=== PATIENT | female | born 1940 | race Caucasian/White ===

== ENCOUNTER 2017-02-27 15:30 | Outpatient (RCR) | payer MEDICARE, MEDICAID ==
[~2017-02-27 15:30] MED LIST: AMBIEN 5MG TABLE5 MG PO; AVANDARYL; BUFFERED ASPIR325 M1 PO; CALCIUM CARBON500 M1 PO; CALTRATE 600 +1 TAB PO; CRESTOR 10MG10 MG PO; CRESTOR10 MG PO; ENALAPRIL; ESCITALOPRAM PO; GABAPENTIN300 M1 PO; GABAPENTIN400 M1 PO; LANTUS100 U/ML SQ; LISINOPRIL/HCTZ1 TAB PO; MULTIVITAMIN PO; NEURONTIN400 MG/CAP PO; NORCO 325 MG-51 TAB PO; NOVLOG SQ; NOVOLOG 100U100 U/ML SQ; OXYCONTIN10 MG PO; ULTRAM 50MG TAB50 MG PO; VITAMIN E200 I1 PO
== END 2017-02-28 ==
LOC: WSPT
DX: M51.36 Other intervertebral disc degeneration, lumbar region (principal); M17.12 Unilateral primary osteoarthritis, left knee
CPT/HCPCS: G8978-GP; G8979-GP

== ENCOUNTER 2018-04-02 20:32 | Emergency (ER) | payer MEDICARE, MEDICAID ==
[~2018-04-02] VITALS: Ht 180.3 cm; Wt 93.2 kg
[2018-04-02 20:36] VITALS: TEMP 98.6
[2018-04-02 21:35] VITALS: BP 171/78; PULSE 59
== END 2018-04-02 21:35 | disposition home or self-care (01) ==
LOC: COL.ER 20:32
DX: M25.562 Pain in left knee (principal)

== ENCOUNTER → 2020-05-25 | Outpatient (CLI) | payer MEDICARE, MEDICAID | LOC: ZCOL.LAB 17:20 | DX: R73.9 Hyperglycemia, unspecified (principal); R73.09 Other abnormal glucose ==

== ENCOUNTER 2020-11-18 18:10 | Emergency (ER) | payer MEDICARE, MEDICAID ==
[~2020-11-18] VITALS: Ht 180.3 cm; Wt 79.5 kg
[2020-11-18 18:22] VITALS: BP 103/63; TEMP 97
[2020-11-18 19:51] LABS: ALANINE AMINOTRANSFERASE 15 U/L (4-34); ALBUMIN 3.9 gm/dL (3.5-5.0); ALKALINE PHOSPHATASE 58 U/L (50-136); ANION GAP 6 mmol/L (7-16); AST,SGOT 29 U/L (15-37); BILIRUBIN,TOTAL 1.3 mg/dL (0.0-1.0); BLOOD UREA NITROGEN 13 mg/dL (7-17); CALCIUM 9.6 mg/dL (8.4-10.2); CARBON DIOXIDE 24 mmol/L (22-30); CHLORIDE 106 mmol/L (98-107); CREATININE, serum 0.63 (0.52-1.25); GLUCOSE 87 mg/dL (74-106); POTASSIUM 3.4 mmol/L (3.4-5.0); SODIUM 136 mmol/L (137-145); TOTAL PROTEIN 6.9 gm/dL (6.4-8.2)
[2020-11-18 20:08] LABS: ACETONE,SERUM NEGATIVE
[2020-11-18 20:30] LABS: BASO # 0.1 (0.0-0.2); BASO % 0.6 % (0.0-2.0); EOS # 0.1 (0.0-0.7); EOS % 0.9 % (0-4.0); GRAN # 8.5 (1.4-6.5); GRAN % 68.7 % (42.2-75.2); HEMATOCRIT 44.6 % (37.0-47.0); HEMOGLOBIN 14.6 g/dl (12.5-16.0); LYMPH # 2.7 (1.2-3.4); LYMPH % 21.9 % (20.0-51.0); MEAN CELL VOLUME 92 fl (80.0-100.0); MEAN CORPUSCULAR HEMOGLOBIN 30 pg (27.0-31.0); MEAN CORPUSCULAR HGB CONC 33 g/dl (33.0-37.0); MEAN PLATELET VOLUME 10.1 fl (7.4-10.4); MONO # 0.9 (0.1-0.6); MONO % 7.2 % (1.7-9.3); PLATELET COUNT 339 K/mm3 (130-400); RED BLOOD COUNT 4.83 M/mm3 (4.10-5.30); REDCELL DISTRIBUTION WIDTH-CV 14.1 % (11.5-14.5)
[2020-11-18 20:32] LABS: ARTERIAL BLD GAS O2 SATURATION 97.8 % (92-100); ARTERIAL BLD GAS TCO2 CT 22.6; ARTERIAL BLOOD GAS BASE EXCESS -0.3 (-2-2); ARTERIAL BLOOD GAS HCO3 21.7 meq/L (22-26); ARTERIAL BLOOD GAS PCO2 28.8 mmHg (35-45); ARTERIAL BLOOD GAS PO2 89.3 mmHg (80-100)
[2020-11-18 21:09] LABS: COLLECTION METHOD CLEAN CATCH
[2020-11-18 21:20] LABS: BUDDING YEAST Present /hpf; MUCOUS Present /lpf; PH 5 (5-8); SQUAMOUS EPITHELIAL 0-2 /hpf; URINE APPEARANCE Cloudy; URINE BACTERIA None Seen /hpf; URINE BILIRUBIN Negative (NEGATIVE); URINE BLOOD Negative (NEGATIVE); URINE COLOR Yellow; URINE GLUCOSE 3+ (NEGATIVE); URINE KETONE Trace (NEGATIVE); URINE LEUKOCYTE ESTERASE Trace (NEGATIVE); URINE NITRATE Negative (NEGATIVE); URINE PROTEIN(semi-quant) 1+ (NEGATIVE); URINE UROBILINOGEN Negative (NEGATIVE)
[2020-11-18] MEDS ORDERED: MACROBID 1100 MG/CAP PO (21:38)
[2020-11-18 22:23] VITALS: PULSE 86
== END 2020-11-18 22:23 | disposition home or self-care (01) ==
LOC: COL.ER 18:10
PROVIDERS: Emergency Medicine; Family Medicine; Physician Assistant
DX: E11.65 Type 2 diabetes mellitus with hyperglycemia (principal); N39.0 Urinary tract infection, site not specified; Z79.4 Long term (current) use of insulin

== ENCOUNTER 2021-06-02 22:18 | Emergency (ER) | payer MEDICARE, MEDICAID ==
[~2021-06-02] VITALS: Ht 180.3 cm; Wt 81.8 kg
[~2021-06-02 22:18] MED LIST changes: +MACROBID 1100 MG/CAP PO
[2021-06-02 22:23] VITALS: TEMP 97.2
[2021-06-02 23:17] LABS: BASO % 0.4 % (0.0-2.0); EOS % 0.2 % (0.0-4.0); GRAN # 8.7 K/mm3 (1.4-6.5); HEMATOCRIT 37.7 % (37.0-47.0); HEMOGLOBIN 12.5 g/dl (12.5-16.0); LYMPH # 0.8 K/mm3 (1.2-3.4); LYMPH % 7.6 % (20.0-51.0); MEAN CELL VOLUME 92 fl (80.0-100.0); MEAN CORPUSCULAR HEMOGLOBIN 30 pg (27-31); MEAN CORPUSCULAR HGB CONC 33 g/dl (33.0-37.0); MEAN PLATELET VOLUME 11.9 fl (7.4-10.4); MONO # 0.7 K/mm3 (0.1-0.6); MONO % 6.7 % (1.7-9.3); PLATELET COUNT 133 K/mm3 (130-400); RED BLOOD COUNT 4.11 M/mm3 (4.10-5.30)
[2021-06-02 23:45] LABS: BILIRUBIN,TOTAL 2.1 mg/dL (0.2-1.2); CALCIUM 8.8 mg/dL (8.4-10.2); CREATININE, serum 0.87 mg/dL (0.57-1.11); POTASSIUM 3.8 mmol/L (3.5-4.5); TOTAL PROTEIN 6.6 gm/dL (6.2-8.1)
[2021-06-03 01:32] LABS: ARTERIAL BLD GAS O2 SATURATION 97.4 % (92-100); ARTERIAL BLD GAS TCO2 CT 23.8; ARTERIAL BLOOD GAS BASE EXCESS -1.2 (-2-2); ARTERIAL BLOOD GAS HCO3 22.7 meq/L (22-26); ARTERIAL BLOOD GAS PCO2 35.6 mmHg (35-45); ARTERIAL BLOOD GAS PO2 95.9 mmHg (80-100); ARTERIAL BLOOD GAS pH 7.42 (7.35-7.45)
[2021-06-03 03:36] VITALS: BP 132/80; PULSE 76
[2021-06-04] MEDS ORDERED: NEURONTIN400 MG/CAP PO (22:02)
[2021-06-04] MEDS ORDERED: CRESTOR 10MG10 MG PO (22:03)
[2021-06-04] MEDS ORDERED: PRINIVIL2.5 MG PO (22:03)
[2021-06-04] MEDS ORDERED: INDERAL 10MG10 MG PO (22:03)
[2021-06-04] MEDS ORDERED: SINGULAIR 110 MG/TAB PO (22:04)
[2021-06-05] MEDS ORDERED: LANTUS SOLOS100 U/ML SQ (10:26)
[2021-06-05] MEDS ORDERED: HUMALOG 75/2100 U/ML SQ (10:27)
[2021-06-05] MEDS ORDERED: LEXAPRO20 MG PO (10:28)
[2021-06-05] MEDS ORDERED: PRINIVIL2.5 MG PO (10:29)
[2021-06-07] MEDS ORDERED: NOVOLOG 100U100 U/M1 SQ (09:11)
[2021-06-07] MEDS ORDERED: LEVEMIR100 U/ML SQ (09:11)
[2021-06-07] MEDS ORDERED: NEURONTIN100 MG/CAP PO (09:12)
[2021-06-07] MEDS ORDERED: TYLENOL 325MG325 MG PO (09:13)
[2021-06-07] MEDS ORDERED: NORCO 325 MG-51 TAB PO (09:14)
== END 2021-06-03 03:36 | disposition home or self-care (01) ==
LOC: COL.ER 22:18
PROVIDERS: Personal Emergency Response Attendant
DX: E11.65 Type 2 diabetes mellitus with hyperglycemia (principal); Z87.891 Personal history of nicotine dependence; Z79.4 Long term (current) use of insulin; W06.XXXA Fall from bed, initial encounter
CPT/HCPCS: J1815; J7040

== ENCOUNTER 2022-04-18 12:54 | Inpatient (IN) | payer MEDICARE, MEDICAID ==
[~2022-04-18] VITALS: Ht 180.3 cm; Wt 85.0 kg
[~2022-04-18 12:54] MED LIST changes: +HUMALOG 75/2100 U/ML SQ; +INDERAL 10MG10 MG PO; +LANTUS SOLOS100 U/ML SQ; +LEVEMIR100 U/ML SQ; +LEXAPRO20 MG PO; +NEURONTIN100 MG/CAP PO; +NOVOLOG 100U100 U/M1 SQ; +PRINIVIL2.5 MG PO; +SINGULAIR 110 MG/TAB PO; +TYLENOL 325MG325 MG PO
[2022-04-18 14:38] LABS: BASO # 0.1 K/mm3 (0.0-0.2); BASO % 0.6 % (0.0-2.0); EOS # 0.1 K/mm3 (0.0-0.7); EOS % 1.4 % (0.0-4.0); GRAN # 6.7 K/mm3 (1.4-6.5); GRAN % 79.4 % (42.2-75.2); HEMOGLOBIN 11.1 g/dl (12.5-16.0); LYMPH # 0.8 K/mm3 (1.2-3.4); LYMPH % 8.9 % (20.0-51.0); MEAN CELL VOLUME 90 fl (80.0-100.0); MEAN CORPUSCULAR HEMOGLOBIN 30 pg (27-31); MEAN CORPUSCULAR HGB CONC 34 g/dl (33.0-37.0); MEAN PLATELET VOLUME 9.2 fl (7.4-10.4); MONO # 0.8 K/mm3 (0.1-0.6); MONO % 9.1 % (1.7-9.3); PLATELET COUNT 212 K/mm3 (130-400); RED BLOOD COUNT 3.66 M/mm3 (4.10-5.30); REDCELL DISTRIBUTION WIDTH-CV 14.6 % (11.5-14.5)
[2022-04-18 14:40] LABS: HEMATOCRIT 32.9 % (37.0-47.0)
[2022-04-18 15:00] LABS: ALBUMIN 3.3 gm/dL (3.4-4.8); CALCIUM 8.4 mg/dL (8.4-10.2); CREATININE, serum 0.79 mg/dL (0.57-1.11)
[2022-04-18 15:11] LABS: BILIRUBIN,TOTAL 0.6 mg/dL (0.2-1.2)
[2022-04-18] MEDS ORDERED: BENADRYL25 M2 PO (16:02)
[2022-04-18] MEDS ORDERED: ZYRTEC 10MG10 MG PO (16:03)
[2022-04-18] MEDS ORDERED: LIQUIFILM TEARS15 ML OU (16:03)
[2022-04-18] MEDS ORDERED: LANTUS100 U/ML SQ (16:04)
[2022-04-18] MEDS ORDERED: IMODIUM 2MG CAPS2 MG PO (16:22)
[2022-04-18] MEDS ORDERED: CLARITIN 1010 MG/TAB PO (16:22)
[2022-04-18] MEDS ORDERED: TOPROL XL 25MG25 MG PO (16:23)
[2022-04-18] MEDS ORDERED: MAALOX ADVANCED1 CTB PO (16:23)
[2022-04-18] MEDS ORDERED: MILK OF MA400 MG/52 (16:24)
[2022-04-18] MEDS ORDERED: ZYPREXA ZYDIS5 MG PO ×2 (16:24→16:25)
[2022-04-18] MEDS ORDERED: MIRALAX PA17 GM/Dose PO (16:24)
[2022-04-18] MEDS ORDERED: ZOFRAN ODT4 MG PO (16:25)
[2022-04-18] MEDS ORDERED: PRILOSEC 20MG20 MG PO (16:25)
[2022-04-18] MEDS ORDERED: EXELON13.3TDM (16:27)
[2022-04-18] MEDS ORDERED: TRILEPTAL600 MG PO (16:27)
[2022-04-18] MEDS ORDERED: SENNA-LAX8.6 MG PO (16:28)
[2022-04-18] MEDS ORDERED: ZOLOFT 100MG100 MG PO (16:28)
[2022-04-18] MEDS ORDERED: DESYREL 100MG100 MG PO (16:29)
[2022-04-18 17:42] VITALS: BP 158/60; PULSE 70; TEMP 98
[2022-04-18] MEDS ORDERED: NEURONTIN100 MG/CAP PO (17:55)
[2022-04-18] MEDS ORDERED: NOVOLOG 100U100 U/M1 SQ (17:58)
--- NOTE | 2022-04-18 19:32 | NUR ---
Patient admitted to room 344 from ER. Med rec completed per shelter paperwork, patient unaware of medications that she takes. Ivf & antibioitcs per orderes to [facility]. Dinner of soup ordered per patient request. Patient admitted from ER with Dom in place, celine provided. Report to tish.
[2022-04-18 20:18] VITALS: BP 158/49; PULSE 68; TEMP 97.3
[2022-04-19] VITALS (7 sets, daily range): BP systolic 114–161; BP diastolic 42–65; PULSE 64–83; TEMP 97.9–99.8
[2022-04-19 06:38] LABS: BASO # 0.1 K/mm3 (0.0-0.2); EOS # 0.2 K/mm3 (0.0-0.7); EOS % 3.8 % (0.0-4.0); GRAN # 4.2 K/mm3 (1.4-6.5); GRAN % 66.8 % (42.2-75.2); HEMATOCRIT 28.8 % (37.0-47.0); LYMPH % 16.3 % (20.0-51.0); MEAN CELL VOLUME 88 fl (80.0-100.0); MEAN CORPUSCULAR HEMOGLOBIN 30 pg (27-31); MEAN CORPUSCULAR HGB CONC 35 g/dl (33.0-37.0); MEAN PLATELET VOLUME 9.9 fl (7.4-10.4); MONO # 0.7 K/mm3 (0.1-0.6); MONO % 11.6 % (1.7-9.3); PLATELET COUNT 223 K/mm3 (130-400); RED BLOOD COUNT 3.29 M/mm3 (4.10-5.30); REDCELL DISTRIBUTION WIDTH-CV 14.6 % (11.5-14.5)
[2022-04-19 06:58] LABS: ALBUMIN 2.9 gm/dL (3.4-4.8); CALCIUM 7.9 mg/dL (8.4-10.2); CREATININE, serum 0.69 mg/dL (0.57-1.11); MAGNESIUM 1.7 mg/dL (1.6-2.6); PHOSPHOROUS 3.3 mg/dL (2.3-4.7); POTASSIUM 4.4 mmol/L (3.5-4.5)
--- NOTE | 2022-04-19 11:12 | NUR ---
TAMICA contacted Sharon at [facility] and confirmed that the patient is a long-term care resident with them. The patient's PCP is Dr. Bear Hyde and her DPOA-HC is in EMR. It designates her daughter, Briana Toney. TAMICA contacted the patient's daughter/DPOA-HC, Briana Toney (ph#[phone]), to discuss discharge plan. Briana lives in [facility]. Briana confirms that the plan is for the patient to return back to [facility] upon discharge. TAMICA faxed updates to [facility]. *Discharge plan: [facility]*
--- NOTE | 2022-04-19 14:20 | NUR ---
Lolly: [facility] Situation: rfid engineer went by room on rounds Background: pt was asking for an iv change rfid engineer passed it on to nurse Assessment: no other needs pt appreciated the visit Recommendation: rfid engineer will follow up as needed
--- NOTE | 2022-04-19 19:30 | NUR ---
RECEIVED CHANGE OF SHIFT REPORT FROM DAY SHIFT RN.
[2022-04-20] VITALS (13 sets, daily range): BP systolic 130–169; BP diastolic 41–84; PULSE 76–89; TEMP 97.6–99
[2022-04-20 06:30] LABS: BASO % 0.5 % (0.0-2.0); EOS # 0.3 K/mm3 (0.0-0.7); EOS % 4.6 % (0.0-4.0); GRAN # 4.1 K/mm3 (1.4-6.5); GRAN % 73.4 % (42.2-75.2); HEMOGLOBIN 10.2 g/dl (12.5-16.0); LYMPH # 0.5 K/mm3 (1.2-3.4); LYMPH % 8.2 % (20.0-51.0); MEAN CELL VOLUME 92 fl (80.0-100.0); MEAN CORPUSCULAR HEMOGLOBIN 31 pg (27-31); MEAN CORPUSCULAR HGB CONC 33 g/dl (33.0-37.0); MONO # 0.7 K/mm3 (0.1-0.6); MONO % 12.8 % (1.7-9.3); PLATELET COUNT 194 K/mm3 (130-400); RED BLOOD COUNT 3.33 M/mm3 (4.10-5.30); REDCELL DISTRIBUTION WIDTH-CV 14.5 % (11.5-14.5)
[2022-04-20 06:38] LABS: HEMATOCRIT 30.5 % (37.0-47.0)
--- NOTE | 2022-04-20 06:47 | NUR ---
CHANGE OF SHIFT REPORT GIVEN TO DAY SHIFT RNJUANJOSE. PATIENT CONTINUES TO BE CONFUSED AND ANXIOUS WHEN AWAKE, DENIES ANY COMPLAINTS OF PAIN THIS SHIFT.
[2022-04-20 06:55] LABS: ALBUMIN 2.8 gm/dL (3.4-4.8); CALCIUM 8.3 mg/dL (8.4-10.2); CREATININE, serum 0.74 mg/dL (0.57-1.11); MAGNESIUM 1.9 mg/dL (1.6-2.6); PHOSPHOROUS 3.1 mg/dL (2.3-4.7); POTASSIUM 3.9 mmol/L (3.5-4.5)
--- NOTE | 2022-04-20 08:00 | NUR ---
Assessment complete. Patient is alert but not oriented. Very confused this AM and very tearful. Tried to calm patient and explain what was going on but does not comprehend. VS have been stable. NS@75ml/hr to right AC infusing without difficulty. Purewick in place with clear yellow output. Noted to have redness to coccyx. Plan of care discussed several times for surgery this AM. Call light in reach/bed alarm on. WIll monitor.
--- NOTE | 2022-04-20 08:28 | NUR ---
Report called to Gina RN-OR staff.
--- NOTE | 2022-04-20 08:35 | NUR ---
To OR at this time via bed.
--- NOTE | 2022-04-20 10:21 | NUR ---
Spoke with [facility] nursing staff-requested updated med list be faxed to update current med rec. States will fax.
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
--- NOTE | 2022-04-20 11:25 | NUR ---
Arrived to room 343 via bed from PACU.
[2022-04-20] MEDS ORDERED: MAALOX ADVANCE148 ML PO (12:36)
--- NOTE | 2022-04-20 13:22 | NUR ---
The patient had surgery today. TAMICA contacted and faxed updates to Sharon at [facility]. Sharon states that they cannot take over the weekend. She states that she will get back to this SW about a transport time on Saturday.
--- NOTE | 2022-04-20 16:20 | NUR ---
Pharmacy notified of need for Exilon patch.
--- NOTE | 2022-04-20 18:29 | NUR ---
Patient has had an uneventful night. Denied pain/nausea/shortness of breath. VS remain stable. Lap sites x 3-bandaids CDI. Has only tolerated a little bit of clear liquids this far. States she just inst hungry. Denies current needs. Call light in reach. WIll monitor.
--- NOTE | 2022-04-20 21:48 | NUR ---
PT IN BED, IS CONFUSED TO PLACE AND TIME. TAKES HS MEDS WITHOUT PROBLEM. REPORTS PAIN TO ABD INTO SHOULDER, MEDICATED WITH NORCO 1 TAB PO AT THIS TIME. APRESOLINE GIVEN FOR ELEVATED SBP. HAS IVF TO RT WRIST, INFUSING WITHOUT PROBLEM. REPOSITIONED TO LEFT SIDE, PUREWIK PLACED. ABD WITH LAP SITES X3 D/I.
[2022-04-21 03:19] VITALS: BP 141/54; PULSE 85; TEMP 98.1
[2022-04-21 06:41] LABS: BASO % 0.5 % (0.0-2.0); EOS # 0.6 K/mm3 (0.0-0.7); EOS % 9.5 % (0.0-4.0); GRAN # 4.7 K/mm3 (1.4-6.5); GRAN % 70.6 % (42.2-75.2); LYMPH # 0.5 K/mm3 (1.2-3.4); LYMPH % 8.2 % (20.0-51.0); MEAN CELL VOLUME 94 fl (80.0-100.0); MEAN CORPUSCULAR HGB CONC 33 g/dl (33.0-37.0); MEAN PLATELET VOLUME 8.8 fl (7.4-10.4); MONO # 0.7 K/mm3 (0.1-0.6); MONO % 10.9 % (1.7-9.3); PLATELET COUNT 201 K/mm3 (130-400); RED BLOOD COUNT 3.21 M/mm3 (4.10-5.30)
[2022-04-21 06:53] LABS: HEMATOCRIT 30.2 % (37.0-47.0); HEMOGLOBIN 9.8 g/dl (12.5-16.0); MEAN CORPUSCULAR HEMOGLOBIN 31 pg (27-31)
[2022-04-21 07:01] LABS: ALBUMIN 2.6 gm/dL (3.4-4.8); CALCIUM 8.1 mg/dL (8.4-10.2); CREATININE, serum 0.72 mg/dL (0.57-1.11); MAGNESIUM 1.8 mg/dL (1.6-2.6); PHOSPHOROUS 3.1 mg/dL (2.3-4.7); POTASSIUM 3.8 mmol/L (3.5-4.5)
--- NOTE | 2022-04-21 07:30 | NUR ---
Assessment complete. Resting in bed eyes closed. Very drowsy this morning. Wakes to name but is not oriented. States she is very tired this morning and wants to wait to eat breakfast. Denies pain/nausea/shortness of breath. Lap sites x3-bandaids. Tele reporting SR. NS@75ml/hr to right wrist-infusing without difficulty. Purewick in place with clear yellow urine. SCDs on bilat. Plan of care discussed for this shift to include meds/calling for questions concerns. Call light in reach/bed alarm on. Will monitor.
[2022-04-21 08:00] VITALS: BP 145/53; PULSE 82; TEMP 99.1
[2022-04-21 12:00] VITALS: BP 134/44; PULSE 82; TEMP 98.5
--- NOTE | 2022-04-21 12:54 | NUR ---
Loom Starter offered prayer and support with patient.
[2022-04-21 16:00] VITALS: BP 110/35; PULSE 73; TEMP 98.4
[2022-04-21 19:52] VITALS: BP 166/58; PULSE 80; TEMP 99.3
--- NOTE | 2022-04-21 21:09 | NUR ---
PT IN BED. TAKES HS MEDS WITHOUT PROBLEM. PUREWICK CATH IN PLACE, URINE DK YELLOW. IN TO RT WRIST, LAP SITES X3 TO ABD D/I. REPOSITIONED TO RT SIDE. MEDICATED WITH NORCO 1 TAB PO FOR ABD PAIN. BED ALARM ON FOR PT SAFETY.
[2022-04-21 23:53] VITALS: BP 124/41; PULSE 76; TEMP 101.2
--- NOTE | 2022-04-22 | NUR ---
PT TEMP 101.2, MEDICATED WITH TYLENOL 650MG PO AT THIS TIME.
--- NOTE | 2022-04-22 01:00 | NUR ---
Patient care, medication administration and nursing documentation occurred during a Daylight Savings Time Change.
[2022-04-22 04:00] VITALS: BP 114/41; PULSE 67; TEMP 98.1
--- NOTE | 2022-04-22 04:42 | NUR ---
PTS TEMP 98.1 ORALLY. IS RESTING WELL.
[2022-04-22 06:43] LABS: BASO % 0.5 % (0.0-2.0); EOS # 0.5 K/mm3 (0.0-0.7); EOS % 5.5 % (0.0-4.0); GRAN # 5.8 K/mm3 (1.4-6.5); GRAN % 71.3 % (42.2-75.2); MEAN CELL VOLUME 92 fl (80.0-100.0); MEAN CORPUSCULAR HGB CONC 33 g/dl (33.0-37.0); MEAN PLATELET VOLUME 9.1 fl (7.4-10.4); MONO # 0.8 K/mm3 (0.1-0.6); MONO % 10.3 % (1.7-9.3); PLATELET COUNT 182 K/mm3 (130-400); RED BLOOD COUNT 2.98 M/mm3 (4.10-5.30); REDCELL DISTRIBUTION WIDTH-CV 14.8 % (11.5-14.5)
[2022-04-22 06:45] LABS: HEMATOCRIT 27.3 % (37.0-47.0); HEMOGLOBIN 9.1 g/dl (12.5-16.0); MEAN CORPUSCULAR HEMOGLOBIN 31 pg (27-31)
[2022-04-22 07:03] LABS: ALBUMIN 2.4 gm/dL (3.4-4.8); CREATININE, serum 0.81 mg/dL (0.57-1.11); MAGNESIUM 1.8 mg/dL (1.6-2.6); PHOSPHOROUS 3.8 mg/dL (2.3-4.7); POTASSIUM 3.8 mmol/L (3.5-4.5)
[2022-04-22 07:51] VITALS: BP 110/55; PULSE 63; TEMP 98.3
--- NOTE | 2022-04-22 08:00 | NUR ---
Assessment complete. Alert but not oriented. Very drowsy this AM. States she is not hungry for breakfast. Lap sites x3 to abdomen CDI. Denies pain/nausea/shortness of breath. VS remain stable. Plan of care discussed for this shift to include meds/pain control/repositioning/calling for questions/concerns. Verbalizes understanding. call light in reach. Will monitor.
[2022-04-22 11:44] VITALS: BP 126/66; PULSE 101; TEMP 97
--- NOTE | 2022-04-22 15:52 | NUR ---
Dr Howell notified of increase in heart rate over the shift as well as arrhythmia reported by TELE. New orders for EKG. Notified RT of EKG need.
[2022-04-22 16:00] VITALS: BP 103/52; PULSE 85; TEMP 98.1
--- NOTE | 2022-04-22 16:44 | NUR ---
Dr Isaac notified of consult for new onset a fib. New orders received and initiated.
[2022-04-22 17:11] LABS: HEMOGLOBIN 10.3 g/dl (12.5-16.0); MEAN CELL VOLUME 91 fl (80.0-100.0); MEAN CORPUSCULAR HEMOGLOBIN 30 pg (27-31); MEAN CORPUSCULAR HGB CONC 33 g/dl (33.0-37.0); MEAN PLATELET VOLUME 8.5 fl (7.4-10.4); PLATELET COUNT 210 K/mm3 (130-400); RED BLOOD COUNT 3.44 M/mm3 (4.10-5.30); REDCELL DISTRIBUTION WIDTH-CV 14.8 % (11.5-14.5)
[2022-04-22 17:12] LABS: HEMATOCRIT 31.3 % (37.0-47.0)
--- NOTE | 2022-04-22 17:20 | NUR ---
Heparin drip started at this time.
[2022-04-22 17:22] LABS: INR 1.5 (0.8-3.0); PROTHROMBIN TIME 16.7 SECONDS (9.7-12.8)
[2022-04-22 17:24] LABS: PARTIAL THROMBOPLASTIN TIME 30.3 SECONDS (26.0-37.0)
[2022-04-22 20:45] VITALS: BP 124/48; PULSE 57; TEMP 98.1
--- NOTE | 2022-04-22 21:04 | NUR ---
FULLER BRUSH MAN REPORTS PT IN SR/SB AT THIS TIME.
[2022-04-22 21:07] VITALS: BP 152/74; PULSE 99; TEMP 98.2
[2022-04-23] VITALS (8 sets, daily range): BP systolic 93–134; BP diastolic 33–61; PULSE 37–58; TEMP 97.5–98
--- NOTE | 2022-04-23 00:19 | NUR ---
PLACED HEPARIN GTT ON HOLD, XA=1.15. WILL REDRAW PTT/XA IN 2 HOURS AT 0215.
[2022-04-23 02:55] LABS: PARTIAL THROMBOPLASTIN TIME 89.2 SECONDS (26.0-37.0)
--- NOTE | 2022-04-23 03:00 | NUR ---
HEP XA=0.35, RESUMED HEPARIN GTT AT 1200 UNITS/HR. NEXT HEP XA AT 0900.
--- NOTE | 2022-04-23 03:55 | NUR ---
B/P LOW, REPORTED TO NOAM GRANDA. NEW ORDERS FOR BOLUS OF 1000CC OVER 2 HRS THEN CONTINUOUS IVF AT 75CC/HR. CONNECTED IVF AT THIS TIME.
--- NOTE | 2022-04-23 05:00 | NUR ---
PTS B/P 134/56 AFTER BOLUS OF 500CC. NOW HAS IVF AT 75CC/HR TO RT WRIST. NOAM GRANDA NOTIFIED OF B/P READING. PT SHOWS SB ON MONITOR. IS ALERT, CONFUSED TO PLACE AND TIME.
[2022-04-23 07:08] LABS: BASO % 0.4 % (0.0-2.0); EOS # 0.2 K/mm3 (0.0-0.7); EOS % 3.1 % (0.0-4.0); GRAN # 4.8 K/mm3 (1.4-6.5); GRAN % 68.1 % (42.2-75.2); LYMPH # 1.4 K/mm3 (1.2-3.4); LYMPH % 19.7 % (20.0-51.0); MEAN CELL VOLUME 95 fl (80.0-100.0); MEAN CORPUSCULAR HGB CONC 32 g/dl (33.0-37.0); MEAN PLATELET VOLUME 9.9 fl (7.4-10.4); MONO # 0.6 K/mm3 (0.1-0.6); MONO % 8.3 % (1.7-9.3); PLATELET COUNT 178 K/mm3 (130-400); RED BLOOD COUNT 3.28 M/mm3 (4.10-5.30); REDCELL DISTRIBUTION WIDTH-CV 14.8 % (11.5-14.5)
[2022-04-23 07:09] LABS: HEMOGLOBIN 9.9 g/dl (12.5-16.0); MEAN CORPUSCULAR HEMOGLOBIN 30 pg (27-31)
[2022-04-23 07:20] LABS: ALBUMIN 2.6 gm/dL (3.4-4.8); CALCIUM 8.2 mg/dL (8.4-10.2); CREATININE, serum 0.82 mg/dL (0.57-1.11); MAGNESIUM 1.9 mg/dL (1.6-2.6); PHOSPHOROUS 4.4 mg/dL (2.3-4.7); POTASSIUM 3.9 mmol/L (3.5-4.5)
--- NOTE | 2022-04-23 10:04 | NUR ---
The hospitalist notified TAMICA that the patient went into Afib and was started on Sotalol. The patient may be here for another two days. TAMICA notified and faxed updates to Sharon at [facility].
--- NOTE | 2022-04-23 11:05 | NUR ---
Pt doing okay this morning. Heart rate has been bradycardic off and on, hospitalist and cardiology aware. New orders have been written for loop recorder and new medication. Called and discussed this with daughter, Briana. Pt being repositioned every 2 hours.
--- NOTE | 2022-04-23 11:15 | NUR ---
labor trainer staff in with pt prepping for loop recorder
--- NOTE | 2022-04-23 13:00 | NUR ---
Pt resting with eyes closed, even non labored breathing. Heart rate low sustaining in the 30s. Discussed with SANDRO Grover with cardiology. Woke pt and pt heart rate up to the 40's/50's. Pt not having complaints of pain at this time. Only requesting oatmeal to eat. Pt continues to be repositioned
--- NOTE | 2022-04-23 17:30 | NUR ---
Pt recently had an episode of asystole. Went straight to room as ICU called. Pt had pin point pupils and was gasping very slowly for air and was unresponsive. Sternal rubbed pt, after approximately 5 seconds, pt started groaning and making small movements. Took about 15 minutes for her to start making some conversation. Pt stated that she felt very dizzy and was nauseous. Speech was very slow. Dr Sahu notified and came to bedside. Dr Sahu did call and update Dr Loza. Order to notify Dr Loza if pulse goes back down in to the 20s. Atropine was ordered and given by ICU nurse that was working the floor. Pt pulse was in the 30s during this time. Pt also has been unable to void this afternoon. Order for davison catheter obtained and davison catheter placed without difficulty with immediate return of tea colored urine.
--- NOTE | 2022-04-23 18:15 | NUR ---
Pt more awake and is making conversation, back to baseline as prior to the asystole episode. Pt pulse now upper 40s/lower 50's. Dinner has been ordered for the pt
--- NOTE | 2022-04-23 19:30 | NUR ---
PT FEEDING SELF DINNER. IV SITE TO RT WRIST WITH HEPARIN GTT AT 12CC/HR INFUSING AND NS AT 75CC/HR INFUSING WITHOUT REDNESS OR SWELLING. KELLEY TO BSD WITH KAROLINA URINE. PT MORE AWAKE AND ALERT TODAY, BRADYCARDIC ON MONITOR.
--- NOTE | 2022-04-23 22:00 | NUR ---
HS MEDS GIVEN WITHOUT PROBLEM. PT RESING WELL, REMAINS BRADYCARDIC.
[2022-04-23 22:38] LABS: COLLECTION METHOD CATHETER
[2022-04-23 23:04] LABS: PH 5.5 (5.0-8.5); URINE APPEARANCE Hazy (CLEAR/HAZY); URINE COLOR Amber (YELLOW); URINE GLUCOSE Negative (NEGATIVE); URINE KETONE Negative (NEGATIVE); URINE PROTEIN(semi-quant) 1+ (NEGATIVE); URINE UROBILINOGEN 0.2 E.U/dL (0.2-1.0)
[2022-04-23 23:05] LABS: URINE BLOOD TRACE-INTACT (NEGATIVE); URINE NITRATE Negative (NEGATIVE)
[2022-04-23 23:11] LABS: MUCOUS Present (NOT PRESENT); URINE BACTERIA Many /hpf (NONE SEEN); URINE CALCIUM OXALATE CRYSTAL Present (NOT PRESENT)
[2022-04-23 23:25] LABS: OSMOLALITY-URINE random 598 Osm/kg (50-1200)
--- NOTE | 2022-04-24 01:10 | NUR ---
TYLENOL 650MG PO FOR RT SIDE PAIN.
[2022-04-24 04:59] VITALS: BP 113/35; PULSE 45; TEMP 98.3
[2022-04-24 06:47] LABS: BASO % 0.6 % (0.0-2.0); EOS # 0.5 K/mm3 (0.0-0.7); EOS % 7.1 % (0.0-4.0); GRAN # 3.7 K/mm3 (1.4-6.5); GRAN % 55.2 % (42.2-75.2); HEMATOCRIT 28.1 % (37.0-47.0); HEMOGLOBIN 9.4 g/dl (12.5-16.0); LYMPH # 1.9 K/mm3 (1.2-3.4); LYMPH % 29.2 % (20.0-51.0); MEAN CELL VOLUME 91 fl (80.0-100.0); MEAN CORPUSCULAR HEMOGLOBIN 30 pg (27-31); MEAN CORPUSCULAR HGB CONC 34 g/dl (33.0-37.0); MEAN PLATELET VOLUME 9.3 fl (7.4-10.4); MONO # 0.5 K/mm3 (0.1-0.6); MONO % 7.3 % (1.7-9.3); PLATELET COUNT 219 K/mm3 (130-400); RED BLOOD COUNT 3.09 M/mm3 (4.10-5.30); REDCELL DISTRIBUTION WIDTH-CV 14.6 % (11.5-14.5)
[2022-04-24 07:08] LABS: CALCIUM 8.1 mg/dL (8.4-10.2); CREATININE, serum 0.86 mg/dL (0.57-1.11); MAGNESIUM 1.7 mg/dL (1.6-2.6); POTASSIUM 3.6 mmol/L (3.5-4.5)
[2022-04-24 08:00] VITALS: BP 118/74; PULSE 53; TEMP 97.9
[2022-04-24 12:07] VITALS: BP 129/32; PULSE 40; TEMP 97.8
--- NOTE | 2022-04-24 13:58 | NUR ---
Was in room about 1377-0154. Pt doing well, seeming at her baseline. Pulse has remained upper 30s to mid 40s. Approximately 1:15, in room with physician. Pt is more out of it. Complaints of feeling dizzy and nauseated. Pt refused her lunch. I was able to get her to drink a little tea. VS as charted. Pt just somewhat staring out, soft spoken speech. Called and had pt talk with her daughter Briana. Dr Villarreal also talked with daughter.
[2022-04-24 16:01] VITALS: BP 124/48; PULSE 45; TEMP 97.5
--- NOTE | 2022-04-24 16:23 | NUR ---
Per progress notes, patient tentatively to have pacemaker placed unless her condition worsens. TAMICA updated Sharon at [facility].
[2022-04-24 20:29] VITALS: BP 143/44; PULSE 40; TEMP 97.8
[2022-04-24 23:56] VITALS: BP 145/45; PULSE 38; TEMP 97.8
[2022-04-25 03:50] VITALS: BP 128/42; PULSE 40; TEMP 97.6
[2022-04-25 07:31] VITALS: BP 170/51; PULSE 52; TEMP 97.6
--- NOTE | 2022-04-25 08:49 | NUR ---
Pt resting at this time. Pt does not appear to be in any pain. Pt appears to be at her baseline since I have been caring for her. Lab was not able to get any specimen for lab work, JUANJOSE Silverio notified
--- NOTE | 2022-04-25 09:50 | NUR ---
Pt heart rate now 100-110, Dr Loza notified
--- NOTE | 2022-04-25 10:38 | NUR ---
INT'd IV fluids per order. Pt sitting up in bed looking over menu for lunch. No complaints, will continue to monitor
[2022-04-25 11:22] VITALS: BP 151/68; PULSE 98; TEMP 98
--- NOTE | 2022-04-25 12:40 | NUR ---
Wastewater Manager faxed clinical updates to [facility].
--- NOTE | 2022-04-25 14:11 | NUR ---
Pt transferred to [facility] via EMS. Pt given bed bath prior to leaving. Navarro catheter in place and pt transferred with heparin at 12ml/hr. Pt heart rate in the low 50s when she transferred. Pt pleasantly alert at transfer. Daughter aware of transfer and plan. Report called to nurse at [facility]
== END 2022-04-25 14:00 | disposition short-term general hospital (02) | DRG 418 ==
LOC: COL.ER 12:54 → SURG 15:49
PROVIDERS: Emergency Medicine; Internal Medicine Adult Congenital Heart Disease; Student in an Organized Health Care Education/Training Program; Surgery; ADMIT Internal Medicine
PROC: BF131ZZ Fluoroscopy of Gallbladder and Bile Ducts using Low Osmolar Contrast (ICD-10-PCS; 2022-04-20)
PROC: 0FT44ZZ Resection of Gallbladder, Percutaneous Endoscopic Approach (ICD-10-PCS; principal; 2022-04-20 09:00)
PROC: 0JH602Z Insertion of Monitoring Device into Chest Subcutaneous Tissue and Fascia, Open Approach (ICD-10-PCS; 2022-04-23)
DX: K80.00 Calculus of gallbladder with acute cholecystitis without obstruction (principal); E87.1 Hypo-osmolality and hyponatremia; K86.1 Other chronic pancreatitis; J91.8 Pleural effusion in other conditions classified elsewhere; M48.56XA Collapsed vertebra, not elsewhere classified, lumbar region, initial encounter for fracture; J98.11 Atelectasis; N39.0 Urinary tract infection, site not specified; F10.90 Alcohol use, unspecified, uncomplicated; Z66 Do not resuscitate; E78.5 Hyperlipidemia, unspecified; F31.9 Bipolar disorder, unspecified; E11.9 Type 2 diabetes mellitus without complications; I10 Essential (primary) hypertension; E87.5 Hyperkalemia; E87.8 Other disorders of electrolyte and fluid balance, not elsewhere classified; F03.90 Unspecified dementia, unspecified severity, without behavioral disturbance, psychotic disturbance, mood disturbance, and anxiety; K82.8 Other specified diseases of gallbladder; K83.8 Other specified diseases of biliary tract; F41.9 Anxiety disorder, unspecified; M19.90 Unspecified osteoarthritis, unspecified site; J30.2 Other seasonal allergic rhinitis; E05.90 Thyrotoxicosis, unspecified without thyrotoxic crisis or storm; I48.0 Paroxysmal atrial fibrillation; I08.1 Rheumatic disorders of both mitral and tricuspid valves; I49.5 Sick sinus syndrome; Z87.891 Personal history of nicotine dependence; Z79.4 Long term (current) use of insulin; Z88.6 Allergy status to analgesic agent; Z85.828 Personal history of other malignant neoplasm of skin; Z88.0 Allergy status to penicillin; Z88.8 Allergy status to other drugs, medicaments and biological substances; Z23 Encounter for immunization
CPT/HCPCS: A4314; C1764; G0378; J0330; J0360; J0461; J0696; J1100; J1644; J1815; J1956; J2405; J2704; J3010; J3475; J7030; J7120; Q9967